=== PATIENT | female | born 1965 | race Caucasian/White ===

== ENCOUNTER → 2017-12-09 | Outpatient (CLI) | payer BC, OTHER ==
--- NOTE | 2017-12-13 11:26 | MM ---
Reason for exam: screening (asymptomatic). Last mammogram was performed 5 years and 8 months ago. History: Patient is postmenopausal and had first child at age 34. Retro-pectoral saline implants in both breasts, 2005. Reductions of both breasts. Physical Findings: A clinical breast exam by your physician is recommended on an annual basis and results should be correlated with mammographic findings. MG 3D Screen Mammo Imp/Cad Bilateral CC, MLO, and ID view(s) were taken. Prior study comparison: April 08, 2012, CAD bilateral diagnostic mammogram. June 07, 2009, bilateral diagnostic digital mammog. The breast tissue is heterogeneously dense. This may lower the sensitivity of mammography. There is no discrete abnormality. Subpectoral implants bilaterally. ASSESSMENT: Benign, BI-RAD 2 RECOMMENDATION: Routine screening mammogram of both breasts in 1 year.
== END | disposition home or self-care (01) ==
LOC: RADMAMWWP 10:45
PROVIDERS: ATTEND Family Medicine
DX: Z12.31 Encounter for screening mammogram for malignant neoplasm of breast (principal)
CPT/HCPCS: 77063; 77067

== ENCOUNTER 2017-12-13 10:41 | Day surgery (SDC) | payer BC, OTHER ==
[2017-12-08 16:09] VITALS: BMI 33.3
[~2017-12-13 10:41] MED LIST: LACTATED RINGERS 1,000 ML IV SCH; LIDOCAINE 1% 20 ML VIAL (10MG/ML) FOR IV START INTRADERMA PRN
[2017-12-13 11:14] VITALS: RESP 16; TEMP 98
[2017-12-13] MEDS ORDERED: PROPOFOL 10 MG/ML 20 ML VIAL IV ONE (11:27)
--- NOTE | 2017-12-13 11:30 | P.GSHP ---
History of Present Illness H&P Date: 12/13/17 Chief Complaint: Constipation, diarrhea Asst. 52-year-old female who's had complaints of issues with chronic constipation and some alternating diarrhea. Patient presents today for colonoscopy. Past Medical History Past Medical History: Fibromyalgia, Osteoarthritis (OA) Additional Past Medical History / Comment(s): environmental allergies, arthritis ghazal hands History of Any Multi-Drug Resistant Organisms: None Reported Past Surgical History: Bariatric Surgery, Breast Surgery, Cholecystectomy, Hysterectomy, Orthopedic Surgery Additional Past Surgical History / Comment(s): breast augmentation, lt ankle surgery,danielle-en-y Past Anesthesia/Blood Transfusion Reactions: No Reported Reaction Smoking Status: Former smoker - Past Family History Mother Family Medical History: Cancer Father Family Medical History: Cancer Medications and Allergies Home Medications Medication Instructions Recorded Confirmed Type Escitalopram [Lexapro] 30 mg PO DAILY 12/08/17 12/13/17 History Fluticasone Nasal [place] [Flonase 1 spray EA NOSTRIL BID 12/08/17 12/13/17 History Nasal [place]] Loratadine [Claritin] 20 mg PO BID 12/08/17 12/13/17 History Pregabalin [Lyrica] 100 mg PO DAILY 12/08/17 12/13/17 History lamoTRIgine [LaMICtal] 100 mg PO BID 12/08/17 12/13/17 History traZODone HCL 150 mg PO DAILY 12/08/17 12/13/17 History Allergies Allergy/AdvReac Type Severity Reaction Status Date / Time No Known Allergies Allergy Verified 12/13/17 11:12 Surgical - Exam Vital Signs Temp Pulse Resp BP Pulse Ox 98.0 F 67 16 142/63 96 12/13/17 11:12 12/13/17 11:12 12/13/17 11:12 12/13/17 11:12 12/13/17 11:12 - General well developed, no distress - Eyes PERRL - ENT normal pinna - Neck no masses - Respiratory normal expansion - Cardiovascular Rhythm: regular - Abdomen Abdomen: soft, non tender Assessment and Plan Assessment: Constipation, diarrhea. We'll perform colonoscopy
--- NOTE | 2017-12-13 11:46 | P.OP ---
Date of Procedure: 12/13/17 Preoperative Diagnosis: Constipation Diarrhea Postoperative Diagnosis: Mild diverticulosis Procedure(s) Performed: Colonoscopy Anesthesia: MAC Surgeon: Alejandro Cerna Pathology: none sent Condition: stable Disposition: PACU Description of Procedure: The patient's placed on the endoscopy table in the lateral position. She received IV sedation. Digital rectal exam was performed which revealed no other values. The flexible colonoscope was then placed patient anus passed throughout the entire colon. The ileocecal valve was visualized. The cecum, ascending and transverse colon appeared normal. In the descending and; sigmoid colon was mild diverticular changes. Scope was then brought back and this appeared normal. Scope was withdrawn for patient.
[2017-12-13 12:08] VITALS: BP 108/72; PULSE 52
== END 2017-12-13 12:38 | disposition home or self-care (01) ==
LOC: ORWHC2ENDO 10:41
PROVIDERS: ATTEND Surgery
DX: K57.30 Diverticulosis of large intestine without perforation or abscess without bleeding (principal); M79.7 Fibromyalgia; J30.89 Other allergic rhinitis; M19.042 Primary osteoarthritis, left hand; M19.041 Primary osteoarthritis, right hand; F39 Unspecified mood [affective] disorder; Z98.84 Bariatric surgery status; Z90.49 Acquired absence of other specified parts of digestive tract; Z90.710 Acquired absence of both cervix and uterus; Z87.891 Personal history of nicotine dependence; Z79.51 Long term (current) use of inhaled steroids; Z79.899 Other long term (current) drug therapy
CPT/HCPCS: 45378; J2704

== ENCOUNTER 2018-06-23 00:28 | Inpatient (IN) | payer BC, OTHER ==
[2018-06-23] MEDS ORDERED: MORPHINE SULFATE 4 MG/ML SYRINGE IVP STA (00:57)
[2018-06-23] MEDS ORDERED: KETOROLAC 30 MG/ML 1 ML VIAL IVP STA (00:57)
--- NOTE | 2018-06-23 00:59 | ED ---
General Adult HPI - General Chief complaint: Extremity Injury, Lower Stated complaint: Fall, R Ankle injury Time Seen by Provider: 06/23/18 00:50 Source: patient, RN notes reviewed, old records reviewed Mode of arrival: wheelchair Limitations: no limitations - History of Present Illness Initial comments: 53-year-old female presents with right ankle injury. Patient was trying on shoes, tripped and fell rolling her right ankle. She has deformity noted on initial exam. States she can feel her foot. She does have significant pain. She has complains of some mild right hip pain. No head neck or back injury. No anticoagulation. No chronic medical problems. - Related Data Home Medications Medication Instructions Recorded Confirmed Escitalopram [Lexapro] 30 mg PO DAILY 12/08/17 06/23/18 Fluticasone Nasal [place] [Flonase 1 spray EA NOSTRIL BID 12/08/17 06/23/18 Nasal [place]] Loratadine [Claritin] 20 mg PO BID 12/08/17 06/23/18 Pregabalin [Lyrica] 100 mg PO DAILY 12/08/17 06/23/18 lamoTRIgine [LaMICtal] 100 mg PO BID 12/08/17 06/23/18 traZODone HCL 150 mg PO DAILY 12/08/17 06/23/18 Allergies Allergy/AdvReac Type Severity Reaction Status Date / Time No Known Allergies Allergy Verified 12/13/17 11:12 Review of Systems ROS Statement: Those systems with pertinent positive or pertinent negative responses have been documented in the HPI. ROS Other: All systems not noted in ROS Statement are negative. Past Medical History Past Medical History: Fibromyalgia, Osteoarthritis (OA) Additional Past Medical History / Comment(s): environmental allergies, arthritis ghazal hands History of Any Multi-Drug Resistant Organisms: None Reported Past Surgical History: Bariatric Surgery, Breast Surgery, Cholecystectomy, Hysterectomy, Orthopedic Surgery Additional Past Surgical History / Comment(s): breast augmentation, lt ankle surgery,danielle-en-y Past Anesthesia/Blood Transfusion Reactions: No Reported Reaction Past Psychological History: Anxiety, Depression Smoking Status: Former smoker - Past Family History Mother Family Medical History: Cancer Father Family Medical History: Cancer General Exam Limitations: no limitations General appearance: alert, in no apparent distress Head exam: Present: atraumatic, normocephalic Eye exam: Present: normal appearance, PERRL ENT exam: Present: normal exam Neck exam: Present: normal inspection. Absent: tenderness, meningismus Respiratory exam: Present: normal lung sounds bilaterally. Absent: respiratory distress, wheezes Cardiovascular Exam: Present: regular rate, normal rhythm GI/Abdominal exam: Present: soft. Absent: distended, tenderness, guarding Extremities exam: Present: tenderness, pedal edema, other (Deformity right ankle with cap refill 3 seconds, palpable DP pulse) Neurological exam: Present: alert, oriented X3 Psychiatric exam: Present: normal affect, normal mood Skin exam: Present: warm, dry, intact. Absent: cyanosis, diaphoretic Course Vital Signs 06/23/18 06/23/18 06/23/18 00:43 01:44 01:48 Temperature 98.2 F Pulse Rate 71 73 75 Respiratory 22 20 20 Rate Blood Pressure 121/75 116/61 O2 Sat by Pulse 100 100 96 Oximetry 06/23/18 06/23/18 01:55 02:00 Temperature Pulse Rate 65 71 Respiratory 18 18 Rate Blood Pressure 120/75 114/69 O2 Sat by Pulse 100 98 Oximetry Procedures - Orthopedic Fracture Reduction Fracture #1 Consent Obtained: written consent Side: right Fracture Reduction Location: tibia, fibula Analgesia: procedural sedation Technique: direct manipulation Post Reduction X-rays Demonstrate: anatomical reduction Post-Reduction Neuro Exam: intact Post-Reduction Vascular Exam: intact Splint Applied: Yes Patient Tolerated Procedure: well - Orthopedic Splinting/Casting Injury #1 Side: right Lower Extremity Injury Location: ankle Lower Extremity Immobilizer: posterior splint, stirrup splint Other Orthopedic Equipment: crutches - Procedural Sedation Procedural Sedation Start Time: 01:44 Procedural Sedation Stop Time: 02:25 Indications: fracture/dislocation reduction ASA Class: I Mallampati Airway Score: 2 Preparation: cardiac specialist applied, pulse oximeter, capnometry used, supplemental O2 applied, suction/airway equipment at bedside IV Propofol Dose (mgs): 60 Complications: none Patient Tolerated Procedure: well Medical Decision Making - Medical Decision Making 53-year-old female with fracture dislocation of the right ankle. Patient does have reduction in the emergency department. Post reduction x-rays revealed near-normal anatomical positioning. She has maintained past. Normal neurovascular exam. Splint applied. Case discussed with Christina zhu for orthopedics. Patient will be admitted for operative repair. Internal medicine on consult for medical management. - Lab Data Result diagrams: 06/23/18 01:07 06/23/18 01:07 Lab Results 06/23/18 06/23/18 06/23/18 Range/Units 01:07 01:07 01:07 WBC 6.8 (3.8-10.6) k/uL RBC 4.25 (3.80-5.40) m/uL Hgb 11.9 (11.4-16.0) gm/dL Hct 36.7 (34.0-46.0) % MCV 86.3 (80.0-100.0) fL MCH 28.1 (25.0-35.0) pg MCHC 32.6 (31.0-37.0) g/dL RDW 14.6 (11.5-15.5) % Plt Count 269 (150-450) k/uL Neutrophils % 46 % Lymphocytes % 43 % Monocytes % 5 % Eosinophils % 3 % Basophils % 1 % Neutrophils # 3.1 (1.3-7.7) k/uL Lymphocytes # 2.9 (1.0-4.8) k/uL Monocytes # 0.3 (0-1.0) k/uL Eosinophils # 0.2 (0-0.7) k/uL Basophils # 0.0 (0-0.2) k/uL PT 10.8 (9.0-12.0) sec INR 1.0 (<1.2) APTT 23.4 (22.0-30.0) sec Sodium 139 (137-145) mmol/L Potassium 3.9 (3.5-5.1) mmol/L Chloride 107 (98-107) mmol/L Carbon Dioxide 24 (22-30) mmol/L Anion Gap 8 mmol/L BUN 8 (7-17) mg/dL Creatinine 0.70 (0.52-1.04) mg/dL Est GFR (CKD-EPI)AfAm >90 (>60 ml/min/1.73 sqM) Est GFR (CKD-EPI)NonAf >90 (>60 ml/min/1.73 sqM) Glucose 94 (74-99) mg/dL Calcium 9.3 (8.4-10.2) mg/dL Total Bilirubin 0.2 (0.2-1.3) mg/dL AST 28 (14-36) U/L ALT 25 (9-52) U/L Alkaline Phosphatase 67 (38-126) U/L Total Protein 6.4 (6.3-8.2) g/dL Albumin 3.9 (3.5-5.0) g/dL Disposition Clinical Impression: Ankle fracture, Trimalleolar fracture of ankle, closed Disposition: ADMITTED IP TO THIS [facility] Condition: Stable Is patient prescribed a controlled substance at d/c from ED?: No Referrals: Saskia Contreras MD [Primary Care Provider] - 1-2 days Decision to Admit Reason: Admit from EC Decision Date: 06/23/18 Decision Time: 03:24
[2018-06-23 01:16] LABS: Basophils % (A) 1 %; Eosinophils # (A) 0.2 k/uL (0-0.7); Eosinophils % (A) 3 %; HCT 36.7 % (34.0-46.0); HGB 11.9 gm/dL (11.4-16.0); Lymphocytes # (A) 2.9 k/uL (1.0-4.8); Lymphocytes % (A) 43 %; MCH 28.1 pg (25.0-35.0); MCHC 32.6 g/dL (31.0-37.0); MCV 86.3 fL (80.0-100.0); Mean Platelet Volume 7.6; Monocytes # (A) 0.3 k/uL (0-1.0); Monocytes % (A) 5 %; Neutrophils # (A) 3.1 k/uL (1.3-7.7); Neutrophils % (A) 46 %; Platelet Count 269 k/uL (150-450); RBC 4.25 m/uL (3.80-5.40); RDW 14.6 % (11.5-15.5); WBC 6.8 k/uL (3.8-10.6)
[2018-06-23 01:25] LABS: Partial Thromboplastin Time 23.4 sec (22.0-30.0); Prothrombin Time 10.8 sec (9.0-12.0)
[2018-06-23 01:30] LABS: ALT 25 U/L (9-52); AST 28 U/L (14-36); Albumin 3.9 g/dL (3.5-5.0); Alkaline Phosphatase 67 U/L (38-126); Anion Gap 8 mmol/L; Blood Urea Nitrogen 8 mg/dL (7-17); Calcium 9.3 mg/dL (8.4-10.2); Carbon Dioxide 24 mmol/L (22-30); Chloride 107 mmol/L (98-107); Glucose 94 mg/dL (74-99); Potassium 3.9 mmol/L (3.5-5.1); Sodium 139 mmol/L (137-145); Total Bilirubin 0.2 mg/dL (0.2-1.3); Total Protein 6.4 g/dL (6.3-8.2)
[2018-06-23] MEDS ORDERED: PROPOFOL 10 MG/ML 20 ML VIAL IV ONE (01:30)
--- NOTE | 2018-06-23 01:57 | XR ---
EXAM: XR Pelvis, 1 or 2 Views CLINICAL HISTORY: ITS.REASON XR Reason: Pain TECHNIQUE: Frontal view of the pelvis. COMPARISON: No relevant prior studies available. FINDINGS: Bones/joints: Unremarkable. No acute fracture. No dislocation. Soft tissues: No acute findings. IMPRESSION: No acute findings.
--- NOTE | 2018-06-23 02:00 | XR ---
EXAM: XR Right Ankle Complete, 3 or More Views CLINICAL HISTORY: ITS.REASON XR Reason: Pain TECHNIQUE: Frontal, lateral and oblique views of the right ankle. COMPARISON: No relevant prior studies available. FINDINGS: Severely displaced fracture at the distal metaphysis of the fibula. The distal fibula maintains its anatomic relationship with the talus. Severely displaced comminuted fracture at the distal tibia, involving the medial malleolus and the lateral corner. The fracture is intra-articular. The lateral corner of the distal tibia maintains a normal relationship with the talus. The remainder of the bone is severely malaligned. There is a widened medial clear space. There is no significant soft tissue swelling. IMPRESSION: Severe age-indeterminate fractures as described
--- NOTE | 2018-06-23 02:13 | XR ---
EXAM: XR Right Ankle Complete, 3 or More Views CLINICAL HISTORY: ITS.REASON XR Reason: Pain TECHNIQUE: Frontal, lateral and oblique views of the right ankle. COMPARISON: No relevant prior studies available. FINDINGS: Bones/joints: Displaced fracture at the posterior malleolus of the distal tibia. Displaced fracture appears to be present at the medial malleolus as well. Possible intra-articular fracture at the lateral corner of the distal tibia. Cannot exclude nondisplaced fracture of the distal fibula, on the lateral view. No dislocation. Soft tissues: Unremarkable. IMPRESSION: See above
[2018-06-23] MEDS ORDERED: NALOXONE 0.4 MG/ML 1 ML VIAL IV PRN (03:19)
[2018-06-23] MEDS ORDERED: IBUPROFEN 400 MG TAB PO PRN (03:19)
[2018-06-23] MEDS ORDERED: ACETAMINOPHEN TAB 325 MG TAB PO PRN (03:19)
[2018-06-23] MEDS ORDERED: HYDROmorphone 0.5 MG/0.5 ML SYRINGE IVP PRN ×2 (03:19→15:52)
[2018-06-23] MEDS ORDERED: ONDANSETRON 4 MG/2 ML VIAL IVP PRN (03:19)
[2018-06-23] MEDS ORDERED: HYDROcodone/APAP 5-325MG 1 EACH TAB PO PRN (08:00)
--- NOTE | 2018-06-23 08:00 | P.HPOR ---
History of Present Illness H&P Date: 06/23/18 Chief Complaint: Right ankle fracture Patient is a 53-year-old female who was brought to [facility] late last night after sustaining an injury to her right ankle. Patient was apparently at home trying on shoes when her dog tripped her she fell to the floor. The right ankle was twisted during the fall. Patient noted immediate pain and deformity of the right ankle. She denies hitting her head during the process. Upon arrival to [facility], imaging and lab tests were done. Images demonstrated a trimalleolar right ankle fracture with dislocation. The emergency room staff provided sedation and was able to reduce and splint fracture to near anatomical alignment. Distal neurovascular exam was intact after procedure. I was contacted by the emergency room staff regarding the patient, I was able to review the images. Patient was admitted under our orthopedic care for planned surgical intervention, internal medicine was placed on consult for medical management and clearance for surgery. Patient was evaluated today at bedside, she is resting comfortably. She notes minimal discomfort in the right ankle, increasing pain when she attempts movement. She's been nonweightbearing since the injury. She has no other orthopedic complaints at this time. She denies any previous orthopedic surgery involving the right lower extremity. She is relatively healthy female with no known pulmonology or cardiac history. Currently patient denies any headaches, lightheadedness, chest pain, shortness of breath, abdominal discomfort, fever or chills. Review of Systems Constitutional: Reports as per HPI Past Medical History Past Medical History: Fibromyalgia, Osteoarthritis (OA) Additional Past Medical History / Comment(s): environmental allergies, arthritis ghazal hands History of Any Multi-Drug Resistant Organisms: None Reported Past Surgical History: Bariatric Surgery, Breast Surgery, Cholecystectomy, Hysterectomy, Orthopedic Surgery Additional Past Surgical History / Comment(s): breast augmentation, left ankle surgery,danielle-en-y Past Anesthesia/Blood Transfusion Reactions: No Reported Reaction Past Psychological History: Anxiety, Depression Smoking Status: Former smoker Past Alcohol Use History: Occasional Additional Past Alcohol Use History / Comment(s): smoker for 10 years 1/2-1 ppd quit age 32 Past Drug Use History: None Reported - Past Family History Mother Family Medical History: Cancer Additional Family Medical History / Comment(s): lung cancer Father Family Medical History: Cancer Additional Family Medical History / Comment(s): lung cancer Medications and Allergies Home Medications Medication Instructions Recorded Confirmed Type Escitalopram [Lexapro] 30 mg PO DAILY 12/08/17 06/23/18 History Fluticasone Nasal [place] [Flonase 1 spray EA NOSTRIL BID 12/08/17 06/23/18 History Nasal [place]] Loratadine [Claritin] 20 mg PO BID 12/08/17 06/23/18 History Pregabalin [Lyrica] 100 mg PO DAILY 12/08/17 06/23/18 History lamoTRIgine [LaMICtal] 100 mg PO BID 12/08/17 06/23/18 History traZODone HCL 150 mg PO DAILY 12/08/17 06/23/18 History Allergies Allergy/AdvReac Type Severity Reaction Status Date / Time No Known Allergies Allergy Verified 12/13/17 11:12 Physical Examination Right lower extremity: Posterior splint with Miguel wrap is in good position and condition. She is able to wiggle the toes no difficulty. Skin is warm to touch both proximal and distal to the splint. Her sensation light touch both proximal distal to the splint are intact. Logroll maneuver of the right leg reproduces no groin pain. There is no significant effusion present over the knee, no lesions or sores. She is nontender with palpation surrounding the knee. Results - Labs Labs: H & H 06/23/18 Range/Units 01:07 Hgb 11.9 (11.4-16.0) gm/dL Hct 36.7 (34.0-46.0) % Coagulation 06/23/18 Range/Units 01:07 INR 1.0 (<1.2) Result Diagrams: 06/23/18 01:07 06/23/18 01:07 - Diagnostic results Ankle/Foot x-ray: report reviewed, image reviewed Assessment and Plan Plan: Imaging: Multiple views of the right ankle were obtained, both post and prereduction x- rays. Pre reduction x-rays demonstrated a ankle dislocation with trimalleolar ankle fracture. Postreduction films demonstrated adequate alignment of the ankle joint with multiple fractures. Assessment: 1. Trimalleolar right ankle fracture 2. Status post relocation right ankle dislocation 3. Fall from standing Plan: I was able to discuss the case, including both physical exam findings and imaging studies my tending Dr. Karadimas. We would like to proceed with surgical intervention, more specifically open reduction internal fixation of the right ankle. Risks and benefits of the procedure were discussed with the patient, this to include but not exclusive to infection, blood loss, neurovascular injury, pain and stiffness, development blood clots, and adequate healing of bone, possible need for further surgery. Patient is in good understanding and would fer to proceed. Obtain consent Nonweightbearing right lower extremity Pain control Medical recommendations and clearance Plan for surgery on 06/24/2018, anticipate discharge on 06/25/2018 depending adequate pain control and no surgical complications Further recommendations to follow Time with Patient: Less than 30
--- NOTE | 2018-06-23 17:17 | P.CONS ---
History of Present Illness - Reason for Consult Consult date: 06/23/18 - History of Present Illness Patient is a 53-year-old female with a PMH of fibromyalgia and depression who presented to the ED after an ankle injury. The patient notes that she was in her usual state of health and was tying her shoes when she tripped and fell on her right ankle yesterday with immediate significant pain. She denied any head injury. The patient subsequently come to the ED where she was noted to have a t rimalleolar right ankle fracture with dislocation. The patient underwent reduction and splint placement while in the ED. The patient was seen at the bedside and reported that her pain of the right ankle is significantly improved since admission, currently at a 3 out of 10. She otherwise denied any active complaints including fever, chills, cough. She further abdominal pain, nausea, or vomiting. She reports that her excess tolerance is unlimited and denied any previous cardiac conditions. She has a previous history of smoking and quit more than 20 years ago. Review of Systems Pertinent positives and negatives as discussed in HPI, a complete review of systems was performed and all other systems are negative. Past Medical History Past Medical History: Fibromyalgia, Osteoarthritis (OA) Additional Past Medical History / Comment(s): environmental allergies, arthritis ghazal hands History of Any Multi-Drug Resistant Organisms: None Reported Past Surgical History: Bariatric Surgery, Breast Surgery, Cholecystectomy, Hysterectomy, Orthopedic Surgery Additional Past Surgical History / Comment(s): breast augmentation, left ankle surgery,danielle-en-y Past Anesthesia/Blood Transfusion Reactions: No Reported Reaction Past Psychological History: Anxiety, Depression Smoking Status: Former smoker Past Alcohol Use History: Occasional Additional Past Alcohol Use History / Comment(s): smoker for 10 years 1/2-1 ppd quit age 32 Past Drug Use History: None Reported - Past Family History Mother Family Medical History: Cancer Additional Family Medical History / Comment(s): lung cancer Father Family Medical History: Cancer Additional Family Medical History / Comment(s): lung cancer Medications and Allergies Home Medications Medication Instructions Recorded Confirmed Type Escitalopram [Lexapro] 10 mg PO DAILY 12/08/17 06/23/18 History Fluticasone Nasal [place] [Flonase 1 spray EA NOSTRIL BID 12/08/17 06/23/18 History Nasal [place]] Loratadine [Claritin] 10 mg PO DAILY 12/08/17 06/23/18 History Pregabalin [Lyrica] 100 mg PO HS 12/08/17 06/23/18 History lamoTRIgine [LaMICtal] 100 mg PO QAM 12/08/17 06/23/18 History traZODone HCL 150 mg PO HS 12/08/17 06/23/18 History Escitalopram [Lexapro] 20 mg PO DAILY 06/23/18 06/23/18 History lamoTRIgine [LaMICtal] 200 mg PO HS 06/23/18 06/23/18 History Allergies Allergy/AdvReac Type Severity Reaction Status Date / Time No Known Allergies Allergy Verified 06/23/18 08:07 Physical Exam Vitals: Vital Signs Temp Pulse Pulse Resp BP BP Pulse Ox 06/23/18 15:00 98.9 F 68 16 120/68 95 06/23/18 07:00 97.8 F 64 16 110/70 97 06/23/18 05:31 97.9 F 62 18 111/73 98 06/23/18 04:44 98.1 F 71 18 98/52 97 06/23/18 03:00 97.6 F 68 20 102/86 97 06/23/18 02:00 71 18 114/69 98 06/23/18 01:55 65 18 120/75 100 06/23/18 01:48 75 20 116/61 96 06/23/18 01:44 73 20 121/75 100 06/23/18 00:43 98.2 F 71 22 100 Intake and Output 06/23/18 06/23/18 06/23/18 06:59 14:59 22:59 Other: # Voids 3 Weight 95.254 kg General: non toxic, no distress, appears at stated age, obese Derm: no unusual rashes/lesions no unusual ecchymoses, warm, dry Head: atraumatic, normocephalic, symmetric Eyes: EOMI, no lid lag, anicteric sclera, pupils equal round reactive to light ENT: Nose and ears atraumatic, no thrush, no pharyngeal erythema Neck: No thyromegaly, no cervical lymphadenopathy, trachea midline, supple Mouth: no lip lesion, mucus membranes moist Cardiovascular: S1S2 reg, no murmur, positive posterior tibial pulse bilateral, no edema, capillary refill less than 2 seconds Lungs: CTA bilateral, no rhonchi, no rales , no accessory muscle use Abdominal: soft, nontender to palpation, no guarding, no appreciable orga nomegaly, normal bowel sounds Ext: no gross muscle atrophy, right lower extremity Miguel bandage in place with right ankle splint Neuro: CN II-XI grossly intact, light touch intact all 4 extremities, finger to nose within normal limits, Psych: Alert, oriented, appropriate affect Results CBC & Chem 7: 06/23/18 01:07 06/23/18 01:07 Assessment and Plan Plan: Trimalleolar right ankle fracture with dislocation -Orthopedic surgery service on board -Patient is low risk for perioperative cardiac complications and is optimized for the orthopedic procedure
[2018-06-23] MEDS: FLUTICASONE 50MCG/SPRAY NASAL 16GM EA NOSTRIL SCH (20:09)
[2018-06-23] MEDS: PREGABALIN 100 MG CAP PO SCH (20:09)
[2018-06-23] MEDS: traZODone HCL 100 MG TAB PO SCH (20:09)
[2018-06-23] MEDS: lamoTRIgine 100 MG TAB PO SCH (20:09)
[2018-06-24] MEDS: LACTATED RINGERS 1,000 ML IV SCH ×2 (00:21→23:10)
[2018-06-24] MEDS: HYDROcodone/APAP 5-325MG 1 EACH TAB PO PRN ×3 (00:28→20:33)
[2018-06-24] MEDS: traMADol 50 MG TAB PO PRN (03:21)
[2018-06-24] MEDS: lamoTRIgine 100 MG TAB PO SCH ×2 (07:49→20:34)
[2018-06-24] MEDS: ESCITALOPRAM 20 MG TAB PO SCH (07:49)
[2018-06-24] MEDS: ESCITALOPRAM 10 MG TAB PO SCH (07:52)
[2018-06-24] MEDS: FLUTICASONE 50MCG/SPRAY NASAL 16GM EA NOSTRIL SCH ×2 (08:43→20:28)
[2018-06-24] MEDS: LORATADINE 10 MG TAB PO SCH (08:43)
[2018-06-24] MEDS ORDERED: HYDROmorphone 1 MG/ML 1 ML SYRINGE IVP PRN (10:21)
--- NOTE | 2018-06-24 10:21 | P.PN ---
Subjective Progress Note Date: 06/24/18 Patient was seen and examined at the bedside. She notes continued 8 out of 10 right ankle pain but otherwise free of active complaints. She denied fever, chills, chest pain, shortness breath, nausea, or vomiting. She also denied abdominal pain or diarrhea. Objective - Vital Signs Vital signs: Vital Signs Temp 98.3 F 06/24/18 01:25 Pulse 67 06/24/18 01:25 Resp 18 06/24/18 03:31 BP 103/67 06/24/18 01:25 Pulse Ox 91 L 06/24/18 01:25 Intake & Output 06/23/18 06/24/18 06/24/18 18:59 06:59 18:59 Output Total 800 Balance -800 Output: Urine 800 Other: Voiding Method Bedside Commode # Voids 3 - Exam General: Non-toxic, in no acute distress, appears stated age, obese HEENT: NC/AT, anicteric sclerae, moist conjunctiva, no lid-lag, PERRLA Cardiovascular: S1/S2 wnl, no murmurs, rubs, or gallops Lungs: Clear to auscultation, normal respiratory effort, no accessory muscle use Abdominal: Soft, non-tender, non-distended, no guarding, rebound, or rigidity Skin: Warm, dry Extremities: Right lower extremity Miguel bandage with right ankle splint Psychiatric: Alert and oriented to person, place and time, appropriate affect Neuro: CN II-XII grossly intact, Strength 5/5 in all extremities except right lower extremity , Speech intact, Sensation to light touch grossly intact throughout - Labs CBC & Chem 7: 06/23/18 01:07 06/23/18 01:07 Assessment and Plan Plan: Trimalleolar right ankle fracture with dislocation -Patient scheduled for surgical repair later today as per orthopedic surgery -Patient continues to be optimized for her procedure Acute right ankle pain -Continue with Dilaudid, [place], and tramadol
[2018-06-24] MEDS ORDERED: IV FLUID CONTINUATION 600 ML IV ONE (13:29)
[2018-06-24] MEDS ORDERED: DEXAMETHASONE SOD PHOS (MDV) 100 MG/10 ML VIAL IV ONE (13:49)
[2018-06-24] MEDS ORDERED: ONDANSETRON 4 MG/2 ML VIAL IVP ONE (13:49)
[2018-06-24] MEDS ORDERED: PROPOFOL 10 MG/ML 20 ML VIAL IV ONE (14:42)
[2018-06-24] MEDS ORDERED: MIDAZOLAM 2 MG/2 ML VIAL ONE (14:42)
[2018-06-24] MEDS ORDERED: fentaNYL (PF) 50 MCG/ML 2 ML AMP ONE (14:42)
[2018-06-24] MEDS ORDERED: ceFAZolin 1,000 MG in SODIUM CHLORIDE 0.9% 1,000 ML IRRIGATION ONE (15:12)
[2018-06-24] MEDS ORDERED: LACTATED RINGERS 1,000 ML IV ONE (15:50)
--- NOTE | 2018-06-24 16:13 | P.OP ---
Date of Procedure: 06/24/18 Preoperative Diagnosis: Right ankle trimalleolar fracture Postoperative Diagnosis: Right ankle trimalleolar fracture Procedure(s) Performed: Open reduction and internal fixation right ankle trimalleolar fracture Implants: Synthes one third semitubular 6-hole plate and 8 appropriate length Synthes screws Anesthesia: spinal Surgeon: Umberto Major Molding Line Assistant #1: Bernardo Ramirez Estimated Blood Loss (ml): 15 Pathology: none sent Condition: stable Disposition: PACU Indications for Procedure: 53-year-old patient seen with displaced right ankle trimalleolar fracture. I recommended open reduction internal fixation. Patient was agreeable. Consent was obtained. Operative Findings: See description of procedure Description of Procedure: Patient was taken to the operative suite. Patient received preoperative IV antibiotics. Patient underwent a spinal anesthetic by the department of anesthesia. A well-padded tourniquet placed proximal right lower extremity. The right lower extremity was prepped and draped in the normal sterile orthopedic fashion. The extremity was elevated and tourniquet insufflated to 300. An incision was made along the lateral malleolus sharply through skin. We dissected down to the lateral malleolar fracture. Hematoma was evacuated. Periosteal elevation was utilized to define the fracture. The fracture was reduced utilizing bone reduction clamp. I chose a one third semitubular plate and appropriate contour. This was secured appropriately screws were inserted all having good bite and purchase. The construct was reviewed and revealed adequate reduction of the fracture and good position of the internal fixation. I now made incision along the medial malleolus sharply through skin. Dissection taken down the fracture site. The distal medial malleolar fracture fragment was fairly small. The hematoma was evacuated. The fracture was reduced utilizing bone reduction clamp. I introduced 2-35 mm partially-threaded 4.0 mm screws to stabilize the medial malleolar fracture. We had good bite and good fixation. We now brought the C-arm into the operative field revealing the AP and oblique mortise and noting good positioning of the hardware and fixation. The mortise was congruent. Lateral intraoperative image revealed that posterior malleolar fracture representing approximately 20-25% but it appeared stable along with a good stable mortise. Spot films were obtained to document this. The C-arm was pulled out. The wounds were irrigated with saline solution. The subcutaneous soft tissues of both incisions were approximated 2-0 Vicryl. The skin margins of both incisions were approximated with skin otto. Sterile dressings were applied. Web roll was applied. The tourniquet was released with immediate cap illary refill noted. We now placed the ankle in to a modified bulky Ye splint in neutral position. Inocente RENEE assisted with this procedure. The patient was transferred to a bed and the recovery stable condition.
[2018-06-24] MEDS: PREGABALIN 100 MG CAP PO SCH (20:34)
[2018-06-24] MEDS: MORPHINE SULFATE 4 MG/ML SYRINGE IVP PRN (22:06)
[2018-06-24] MEDS: traZODone HCL 100 MG TAB PO SCH (23:19)
[2018-06-25] MEDS: traMADol 50 MG TAB PO PRN (00:21)
[2018-06-25] MEDS: MORPHINE SULFATE 4 MG/ML SYRINGE IVP PRN ×3 (02:05→16:45)
[2018-06-25] MEDS: HYDROcodone/APAP 5-325MG 1 EACH TAB PO PRN (03:35)
[2018-06-25] MEDS: LORATADINE 10 MG TAB PO SCH (09:25)
[2018-06-25] MEDS: FLUTICASONE 50MCG/SPRAY NASAL 16GM EA NOSTRIL SCH ×2 (09:25→20:47)
[2018-06-25] MEDS: ESCITALOPRAM 10 MG TAB PO SCH (09:25)
[2018-06-25] MEDS: lamoTRIgine 100 MG TAB PO SCH ×2 (09:25→20:50)
[2018-06-25] MEDS: ESCITALOPRAM 20 MG TAB PO SCH (09:25)
--- NOTE | 2018-06-25 10:08 | FL ---
Fluoroscopy HISTORY: Trimalleolar fracture dislocation 24 seconds fluoroscopy time supplied to the referring clinician. 3 intraoperative C-arm images docum ent the procedure. See dictated report from orthopedic surgery.
--- NOTE | 2018-06-25 10:08 | XR ---
Limited right ankle HISTORY: Open reduction internal fixation 3 intraoperative C-arm images document the procedure
[2018-06-25] MEDS ORDERED: POLYETHYLENE GLYCOL 3350 17 GM POWD.PACK PO PRN (10:36)
--- NOTE | 2018-06-25 10:41 | P.PN ---
Subjective Progress Note Date: 06/25/18 Principal diagnosis: Right ankle fracture Patient is a 53-year-old female with a past medical history of fibromyalgia, depression, and obesity who presented to the emergency department after an ankle injury. She subsequently underwent ORIF of right ankle on 06/24. Patient seen and examined at bedside. She reports that she has been struggling with pain control this morning. The 2 tablets of [place] 5/325 are not controlling her pain. Morphine is working well. She had some postoperative nausea which resolved without significant intervention. She denies any chest pain or shortness of breath. She has not had a bowel movement since surgery. She's concerned that she needs to go to rehab as she lives alone. We discussed the benefits and drawbacks of rehab including increased risk for repeat hospitalization and secondary infection. I encouraged her to discuss this with the orthopedic service team as well as physical therapy. Objective - Vital Signs Vital signs: Vital Signs Temp 98.1 F 06/25/18 07:00 Pulse 66 06/25/18 07:00 Resp 16 06/25/18 07:00 BP 112/69 06/25/18 07:00 Pulse Ox 96 06/25/18 07:00 Intake & Output 06/24/18 06/25/18 06/25/18 18:59 06:59 18:59 Intake Total 701 160 Output Total 815 600 Balance -114 -440 Intake: IV 701 Intake, IV Titration 160 Amount Lactated Ringers 1,000 ml 160 @ 20 mls/hr IV .Q24H [facility] Rx#:[id number] Output: Urine 800 600 Estimated Blood Loss 15 Other: Voiding Method Bedside Commode Bedside Commode # Voids 3 1 - Exam General: non toxic, no distress, appears at stated age, obese Derm: warm, dry Head: atraumatic, normocephalic, symmetric Eyes: EOMI, no lid lag, anicteric sclera Mouth: no lip lesion, mucus membranes moist Cardiovascular: S1S2 reg, no murmur, positive posterior tibial pulse bilateral, Lungs: CTA bilateral, no rhonchi, no rales , no accessory muscle use Abdominal: soft, nontender to palpation, no guarding, no appreciable organomegaly Ext: Right leg with cast in place, no gross muscle atrophy, no edema, no contractures Neuro: CN II-XI grossly intact, no focal neuro deficits Psych: Alert, oriented, appropriate affect - Labs CBC & Chem 7: 06/23/18 01:07 06/23/18 01:07 Assessment and Plan Assessment: Trimalleolar right ankle fracture s/p ORIF 1.Constipation - prn miralax 2. Right ankle pain - will increase norco to 7.5 mg BID in order to help stop need for IV morphine. - Further pain management to the discretion of ortho 3. Fibromyalgia - Encourage continued movement and activity 4. Obesity with BMI 34.9 - Outpatient structured weight loss4 Medically stable for discharge when deemed appropriate by ortho. Thank you for allowing us to participate in the care of this patient. Do not hesitate to contact us with questions. Someone can be reached from the [facility] hospitalist group at all hours of the day at [phone].
[2018-06-25] MEDS: HYDROcodone/APAP 7.5-325MG 1 EACH TAB PO PRN ×2 (10:51→19:50)
--- NOTE | 2018-06-25 11:22 | P.PN ---
Subjective Progress Note Date: 06/25/18 Principal diagnosis: Status post ORIF right trimalleolar ankle fracture Patient is evaluated at bedside today, she is resting comfortably. I was contacted last night with regards to pain control. We did switch her IV pain medication around. She has struggled with the oral medication, she feels like it's not strong enough. She has not gotten out of bed yet at this time. Objective - Vital Signs Vital signs: Vital Signs Temp 98.1 F 06/25/18 07:00 Pulse 66 06/25/18 07:00 Resp 16 06/25/18 07:00 BP 112/69 06/25/18 07:00 Pulse Ox 96 06/25/18 07:00 Intake & Output 06/24/18 06/25/18 06/25/18 18:59 06:59 18:59 Intake Total 701 160 Output Total 815 600 Balance -114 -440 Intake: IV 701 Intake, IV Titration 160 Amount Lactated Ringers 1,000 ml 160 @ 20 mls/hr IV .Q24H [facility] Rx#:[id number] Output: Urine 800 600 Estimated Blood Loss 15 Other: Voiding Method Bedside Commode Bedside Commode # Voids 3 1 - Exam Right lower extremity: Postoperative splint is in good position and condition. Minimal soft tissue swelling present in the toes. She is able wiggle the toes and minimal difficulty. Sensory exam to light touch both proximal distal to this point are intact. Skin is warm to touch. - Labs CBC & Chem 7: 06/23/18 01:07 06/23/18 01:07 Assessment and Plan Plan: Assessment: 1. Postop day #1 status post ORIF right ankle trimalleolar fracture Plan: Pain control, internal medicine did increase oral pain medication, we'll try to hold off on IV pain medication GI and DVT prophylaxis, continue current medication Nonweightbearing right lower extremity, utilizing a knee scooter Ice and elevate often Medical recommendations Hopeful discharge to home tomorrow Time with Patient: Less than 30
[2018-06-25] MEDS: LACTATED RINGERS 1,000 ML IV SCH (20:48)
[2018-06-25] MEDS: traZODone HCL 100 MG TAB PO SCH (20:50)
[2018-06-25] MEDS: PREGABALIN 100 MG CAP PO SCH (20:50)
[2018-06-26] MEDS: HYDROcodone/APAP 7.5-325MG 1 EACH TAB PO PRN ×4 (02:21→22:27)
[2018-06-26] MEDS: traMADol 50 MG TAB PO PRN ×3 (05:54→20:10)
[2018-06-26] MEDS: ESCITALOPRAM 20 MG TAB PO SCH (08:32)
[2018-06-26] MEDS: lamoTRIgine 100 MG TAB PO SCH ×2 (08:33→20:57)
[2018-06-26] MEDS: ESCITALOPRAM 10 MG TAB PO SCH (08:33)
[2018-06-26] MEDS: FLUTICASONE 50MCG/SPRAY NASAL 16GM EA NOSTRIL SCH ×2 (08:33→20:58)
[2018-06-26] MEDS: LORATADINE 10 MG TAB PO SCH (08:33)
--- NOTE | 2018-06-26 09:24 | P.PN ---
Subjective Progress Note Date: 06/26/18 Principal diagnosis: Status post ORIF right trimalleolar ankle fracture Patient is evaluated at bedside today, she is resting comfortably. Pain control is better today with increasing her oral medication. She points over physical therapy today. She denies any chest pain, shortness of breath, fever or chills. Objective - Vital Signs Vital signs: Vital Signs Temp 98.0 F 06/26/18 07:00 Pulse 70 06/26/18 07:00 Resp 14 06/26/18 07:00 BP 145/88 06/26/18 07:00 Pulse Ox 95 06/26/18 07:00 Intake & Output 06/25/18 06/26/18 06/26/18 18:59 06:59 18:59 Intake Total 160 240 Output Total 1200 Balance -1040 240 Intake: Intake, IV Titration 160 Amount Lactated Ringers 1,000 ml 160 @ 20 mls/hr IV .Q24H [facility] Rx#:[id number] Oral 240 Output: Urine 1200 Other: Voiding Method Bedside Commode Bedside Commode Bedside Commode # Voids 1 2 - Exam Right lower extremity: Postoperative splint is in good position and condition. Minimal soft tissue swelling present in the toes. She is able wiggle the toes and minimal difficulty. Sensory exam to light touch both proximal distal to this point are intact. Skin is warm to touch. - Labs CBC & Chem 7: 06/23/18 01:07 06/23/18 01:07 Assessment and Plan Plan: Assessment: 1. Postop day #2 status post ORIF right ankle trimalleolar fracture Plan: Pain control, discharge on [place] 7.5 mg/325 mg GI and DVT prophylaxis, aspirin 325 mg once a day Physical therapy evaluation Nonweightbearing right lower extremity, utilizing a knee scooter Ice and elevate often Medical recommendations Hopeful discharge to home today Time with Patient: Less than 30
--- NOTE | 2018-06-26 09:43 | P.PN ---
Subjective Progress Note Date: 06/26/18 Principal diagnosis: Right ankle fracture Patient is a 53-year-old female with a past medical history of fibromyalgia, depression, and obesity who presented to the emergency department after an ankle injury. She subsequently underwent ORIF of right ankle on 06/24. Patient seen and examined at bedside. Pain better controlled, worried about being non tarik bearing, no chest pain, no sob, no nausea, no vomiting. Did not take miralax yesterday as worried about to aggressive of bowel movements. Is willing to take today. Objective - Vital Signs Vital signs: Vital Signs Temp 98.0 F 06/26/18 07:00 Pulse 70 06/26/18 07:00 Resp 14 06/26/18 07:00 BP 145/88 06/26/18 07:00 Pulse Ox 95 06/26/18 07:00 Intake & Output 06/25/18 06/26/18 06/26/18 18:59 06:59 18:59 Intake Total 160 240 Output Total 1200 Balance -1040 240 Intake: Intake, IV Titration 160 Amount Lactated Ringers 1,000 ml 160 @ 20 mls/hr IV .Q24H [facility] Rx#:[id number] Oral 240 Output: Urine 1200 Other: Voiding Method Bedside Commode Bedside Commode Bedside Commode # Voids 1 2 - Exam General: non toxic, no distress, appears at stated age, obese Derm: warm, dry Head: atraumatic, normocephalic, symmetric Eyes: EOMI, no lid lag, anicteric sclera Mouth: no lip lesion, mucus membranes moist Cardiovascular: S1S2 reg, no murmur, positive posterior tibial pulse bilateral, Lungs: CTA bilateral, no rhonchi, no rales , no accessory muscle use Abdominal: soft, nontender to palpation, no guarding, no appreciable organomegaly Ext: Right leg with cast in place, no gross muscle atrophy, no edema, no contractures Neuro: CN II-XI grossly intact, no focal neuro deficits Psych: Alert, oriented, appropriate affect - Labs CBC & Chem 7: 06/23/18 01:07 06/23/18 01:07 Assessment and Plan Assessment: Trimalleolar right ankle fracture s/p ORIF 1.Constipation - prn miralax- give dose today 2. Right ankle pain - norco to 7.5 mg BID working well - Further pain management to the discretion of ortho 3. Fibromyalgia - Encourage continued movement and activity 4. Obesity with BMI 34.9 - Outpatient structured weight loss4 Medically stable for discharge when deemed appropriate by ortho. Thank you for allowing us to participate in the care of this patient. Do not hesitate to contact us with questions. Someone can be reached from the [facility] hospitalist group at all hours of the day at [phone].
[2018-06-26] MEDS: traZODone HCL 100 MG TAB PO SCH (20:58)
[2018-06-26] MEDS: PREGABALIN 100 MG CAP PO SCH (20:58)
[2018-06-26] MEDS: LACTATED RINGERS 1,000 ML IV SCH (21:00)
[2018-06-27] MEDS: HYDROcodone/APAP 7.5-325MG 1 EACH TAB PO PRN ×2 (04:30→10:24)
[2018-06-27] MEDS: ESCITALOPRAM 10 MG TAB PO SCH (07:22)
[2018-06-27] MEDS: FLUTICASONE 50MCG/SPRAY NASAL 16GM EA NOSTRIL SCH (07:23)
[2018-06-27] MEDS: ESCITALOPRAM 20 MG TAB PO SCH (07:23)
[2018-06-27] MEDS: LORATADINE 10 MG TAB PO SCH (07:23)
[2018-06-27] MEDS: lamoTRIgine 100 MG TAB PO SCH (07:23)
[2018-06-27 07:56] VITALS: BP 121/79; PULSE 82; RESP 16; TEMP 97.8
--- NOTE | 2018-06-27 09:36 | P.PN ---
Subjective Progress Note Date: 06/27/18 Principal diagnosis: Status post ORIF right trimalleolar ankle fracture Patient is evaluated at bedside today, she is resting comfortably. Patient had an incident yesterday afternoon prior to discharge, she was attempting to get back in bed using the knee scooter and slipped down to the floor. She no increase in pain in the ankle. I did keep her 1 additional night. She feels a lot better this morning, she's been in a lot of bed a few different times with no problems. She denies any chest pain, shortness of breath, fever or chills. Objective - Vital Signs Vital signs: Vital Signs Temp 97.8 F 06/27/18 07:00 Pulse 82 06/27/18 07:00 Resp 16 06/27/18 07:00 BP 121/79 06/27/18 07:00 Pulse Ox 93 L 06/27/18 07:00 Intake & Output 06/26/18 06/27/18 06/27/18 18:59 06:59 18:59 Intake Total 660 200 Balance 660 200 Intake: Oral 660 200 Other: Voiding Method Bedside Commode Toilet Toilet # Voids 3 2 - Exam Right lower extremity: Postoperative splint is in good position and condition. Minimal soft tissue swelling present in the toes. She is able wiggle the toes and minimal difficulty. Sensory exam to light touch both proximal distal to this point are intact. Skin is warm to touch. - Labs CBC & Chem 7: 06/23/18 01:07 06/23/18 01:07 Assessment and Plan Plan: Assessment: 1. Postop day #3 status post ORIF right ankle trimalleolar fracture Plan: Pain control, discharge on [place] 7.5 mg/325 mg GI and DVT prophylaxis, aspirin 325 mg once a day Physical therapy evaluation Nonweightbearing right lower extremity, utilizing a knee scooter Ice and elevate often Medical recommendations Discharge home today Time with Patient: Less than 30
--- NOTE | 2018-06-27 09:37 | P.DS ---
Providers Date of admission: 06/23/18 03:19 Expected date of discharge: 06/27/18 Attending physician: Umberto Major Consults: 06/23/18 03:20 Consult Physician Routine Consulting Provider: Mayo Landaverde Consult Reason/Comments: Medical management Do you want consulting provider notified?: Yes Primary care physician: Saskia Contreras MD Hospital Course: Date of admission: 06/23/2018 Date of discharge: 06/27/2018 Admission diagnosis: Right trimalleolar ankle fracture, status post relocation right ankle dislocation Discharge diagnosis: Status post ORIF right ankle trimalleolar fracture Attending physician: Dr. Major Surgical procedures: Open reduction internal fixation right ankle trimalleolar fracture Brief history: Patient is a 53-year-old female who presented to [facility] on 06/23/2018 after sustaining a fall at home. Patient was apparently trying on shoes, when her dog bumped into her, she fell on her right side. She had immediate pain and deformity of the right ankle, she was unable to bear weight. Upon arrival to [facility], images demonstrated a dislocated right ankle with evidence of a right trimalleolar ankle fracture. Sedation was provided by the emergency room staff, they were able to relocate the ankle and place her in a splint. I was contacted by the emergency room staff regarding this patient, she was admitted under orthopedic care with plan for surgical intervention. She underwent a surgical procedure on 06/24/2018. Hospital course: Details of patient's surgery can be found in operative report. Patient tolerated the procedure well and was subsequently transported to orthopedic floor. Patient's orthopeidc and medical care was provided daily. Patient had daily laboratory tests performed for evaluation of overall blood counts. Patient had daily physical therapy to include strengthening range of motion as well as education with walker ambulation. Patient was treated with Lovenox for their postoperative DVT prophylaxis during their inpatient stay. Patient was noted to have a relatively uneventful postoperative course. Patient reported satisfactory pain control with oral pain medications by postoperative day 0. Patient showed satisfactory progress with physical therapy. Patient moved steadily through the program and had no difficulty meeting the goals by postoperative day 3. Given patient's otherwise satisfactory course and having met physical therapy goals, plan is to discharge patient home on postoperative day 3. Discharge condition/disposition: Patient will be discharged home in stable condition. Discharge medications: Instructions are given on resumption of patient's normal daily medications per primary care recommendation, in addition patient will be p rescribed [place] 7.5 mg/325 mg, tramadol 50 mg, Colace milligrams, aspirin 325 mg. Discharge instructions: 1. Wound care and infection precautions, keep incision dry and covered while showering, no lotions, creams, moisturizers. No soaking, tubs, pools, hottubs. Do not scrub over the incision. 2. Nonweightbearing right lower extremity, utilize scooter/walker/crutches as needed 3. Ice and elevate when necessary. Do not exceed 20 minutes per hour with ice pack. 4. Utilize compression sleeve until seen at first follow up appointment. 7. Pain meds and anticoagulants per prescription. 8. Pain medication has potential to cause constipation. Increase oral fluid and fiber intake. Contact primary care provider if you have not had a bowel movement within 48 hours after discharge 10. Follow up in office at 2 weeks postop with Inocente Ramirez PA-C 11. Follow up with your primary care doctor 7-10 days after discharge. 12. Contact [facility] with any questions, . Procedures: Open reduction internal fixation right trimalleolar fracture Patient Condition at Discharge: Good Plan - Discharge Summary Discharge Rx Participant: Yes New Discharge Prescriptions: New Aspirin 325 mg PO DAILY #30 tab Docusate [Colace] 100 mg PO DAILY #30 capsule HYDROcodone/APAP 7.5-325MG [[place] 7.5] 1 - 2 each PO Q6HR PRN #56 tab PRN Reason: Pain traMADol HCl [Ultram] 50 mg PO Q6H PRN #28 tab PRN Reason: Pain No Action Fluticasone Nasal [place] [Flonase Nasal [place]] 1 spray EA NOSTRIL BID traZODone HCL 150 mg PO HS Pregabalin [Lyrica] 100 mg PO HS Escitalopram [Lexapro] 10 mg PO DAILY lamoTRIgine [LaMICtal] 100 mg PO QAM Loratadine [Claritin] 10 mg PO DAILY Escitalopram [Lexapro] 20 mg PO DAILY lamoTRIgine [LaMICtal] 200 mg PO HS Discharge Medication List Escitalopram [Lexapro] 10 mg PO DAILY 12/08/17 [History] Fluticasone Nasal [place] [Flonase Nasal [place]] 1 spray EA NOSTRIL BID 12/08/17 [History] Loratadine [Claritin] 10 mg PO DAILY 12/08/17 [History] Pregabalin [Lyrica] 100 mg PO HS 12/08/17 [History] lamoTRIgine [LaMICtal] 100 mg PO QAM 12/08/17 [History] traZODone HCL 150 mg PO HS 12/08/17 [History] Escitalopram [Lexapro] 20 mg PO DAILY 06/23/18 [History] lamoTRIgine [LaMICtal] 200 mg PO HS 06/23/18 [History] Aspirin 325 mg PO DAILY #30 tab 06/26/18 [Rx] Docusate [Colace] 100 mg PO DAILY #30 capsule 06/26/18 [Rx] HYDROcodone/APAP 7.5-325MG [[place] 7.5] 1 - 2 each PO Q6HR PRN #56 tab 06/26/18 [Rx] traMADol HCl [Ultram] 50 mg PO Q6H PRN #28 tab 06/26/18 [Rx] Follow up Appointment(s)/Referral(s): Saskia Contreras MD [Primary Care Provider] - 1-2 days Bernardo Ramirez PAC [PHYSICIAN PLISSE MACHINE OPERATOR HELPER] - 2 Weeks Patient Instructions/Handouts: ORIF of an Ankle Fracture (DC) Activity/Diet/Wound Care/Special Instructions: regular diet Orthopedic discharge instructions: 1. Nonweightbearing right lower extremity 2. Do not remove splint, keep covered and dry while showering 3. Ice and elevate 4. Pain medication as needed 5. Aspirin 325 mg daily DVT prophylaxis 6. Follow-up [facility] in 2 weeks Discharge Disposition: HOME SELF-CARE
== END 2018-06-27 11:32 | disposition home or self-care (01) | DRG 494 ==
LOC: EC 00:28 → 4SSUR 03:19
PROVIDERS: ADMIT Orthopaedic Surgery; ATTEND Orthopaedic Surgery
PROC: 0QSG04Z Reposition Right Tibia with Internal Fixation Device, Open Approach (ICD-10-PCS; principal; 2018-06-24 14:30)
DX: S82.851A Displaced trimalleolar fracture of right lower leg, initial encounter for closed fracture (principal); M79.7 Fibromyalgia; M19.90 Unspecified osteoarthritis, unspecified site; F41.9 Anxiety disorder, unspecified; F32.9 Major depressive disorder, single episode, unspecified; E66.9 Obesity, unspecified; M25.551 Pain in right hip; K59.00 Constipation, unspecified; W01.0XXA Fall on same level from slipping, tripping and stumbling without subsequent striking against object, initial encounter; Z68.34 Body mass index [BMI] 34.0-34.9, adult; Z79.899 Other long term (current) drug therapy; Z90.710 Acquired absence of both cervix and uterus; Z90.49 Acquired absence of other specified parts of digestive tract; Z87.891 Personal history of nicotine dependence; Z80.1 Family history of malignant neoplasm of trachea, bronchus and lung
CPT/HCPCS: 27818; 36415; 72170; 80053; 85025; 85610; 85730; 93005; 96374; 96375; 99152; 99153; 99285

== ENCOUNTER → 2019-04-20 | Outpatient (CLI) | payer BC ==
--- NOTE | 2019-04-21 09:42 | MM ---
Reason for exam: screening (asymptomatic). Last mammogram was performed 1 year and 4 months ago. History: Patient is postmenopausal and had first child at age 34. Retro-pectoral saline implants in both breasts, 2005. Physical Findings: A clinical breast exam by your physician is recommended on an annual basis and results should be correlated with mammographic findings. MG Screening Mammo Implant/CAD Bilateral CC, MLO, and ID view(s) were taken. Prior study comparison: December 09, 2017, bilateral MG 3d screen mammo imp/cad. April 08, 2012, CAD bilateral diagnostic mammogram. The breast tissue is heterogeneously dense. This may lower the sensitivity of mammography. Stable saline implants. No significant changes when compared with prior studies. ASSESSMENT: Benign, BI-RAD 2 RECOMMENDATION: Routine screening mammogram of both breasts in 1 year.
== END | disposition home or self-care (01) ==
LOC: RADMAMWWP 10:58
PROVIDERS: ATTEND Family Medicine
DX: Z12.31 Encounter for screening mammogram for malignant neoplasm of breast (principal)
CPT/HCPCS: 77067

== ENCOUNTER → 2019-08-31 | Outpatient (CLI) | payer BC ==
[2019-08-31 19:20] LABS: African American GFR (CKD) 98.2 (60.0-200.0); C Reactive Protein <0.4 mg/dL (0.0-0.8); Carbon Dioxide 28.6 mmol/L (21.6-31.8); Chloride 106 mmol/L (96-109); Non-African American GFR(CKD) 84.8 (60.0-200.0); Potassium 4.2 mmol/L (3.5-5.5); Rheumatoid Factor, Qnt 6 IU/mL (0-15); Sodium 143 mmol/L (135-145)
== END | disposition home or self-care (01) ==
LOC: LABWHC1 10:30
PROVIDERS: ATTEND Internal Medicine
DX: M25.50 Pain in unspecified joint (principal); G25.81 Restless legs syndrome
CPT/HCPCS: 36415; 80051; 82565; 84439; 84443; 84520; 85652; 86038; 86140; 86431

== ENCOUNTER 2020-06-29 14:19 | Emergency (ER) | payer BC ==
[2020-06-29 14:25] VITALS: BP 130/85; PULSE 73; RESP 18; TEMP 98.1
[2020-06-29] MEDS ORDERED: ACETAMINOPHEN TAB 500 MG TAB PO STA (14:46)
--- NOTE | 2020-06-29 14:50 | ED ---
Fall HPI - General Chief Complaint: Fall Stated Complaint: Fall/Head Injury Time Seen by Provider: 06/29/20 14:43 Source: patient, RN notes reviewed Mode of arrival: wheelchair - History of Present Illness Initial Comments: Patient is a 55-year-old female that presents to emergency department status post fall from a pogo stick with head injury. She notes that she was postictal fell onto her right side and hit the right side of her head. She did did state that she lost consciousness for a brief moment. She notes that she is currently nauseous feels very tired. She denied any other pain in any other extremities or body parts. She was well-appearing and well-hydrated while sitting up in bed during exam and interview. She did have a cervical collar on while sitting in bed. She states that her pain was a 7 out of 10. She denied any chest pain shortness of breath vomiting diarrhea constipation fever fatigue chills decreased sensation numbness tingling down any of the extremities, blood thinner use. - Related Data Home Medications Medication Instructions Recorded Confirmed Escitalopram [Lexapro] 10 mg PO DAILY 12/08/17 06/23/18 Fluticasone Nasal [place] [Flonase 1 spray EA NOSTRIL BID 12/08/17 06/23/18 Nasal [place]] Loratadine [Claritin] 10 mg PO DAILY 12/08/17 06/23/18 Pregabalin [Lyrica] 100 mg PO HS 12/08/17 06/23/18 lamoTRIgine [LaMICtal] 100 mg PO QAM 12/08/17 06/23/18 traZODone HCL 150 mg PO HS 12/08/17 06/23/18 Escitalopram [Lexapro] 20 mg PO DAILY 06/23/18 06/23/18 lamoTRIgine [LaMICtal] 200 mg PO HS 06/23/18 06/23/18 Previous Rx's Medication Instructions Recorded Aspirin 325 mg PO DAILY #30 tab 06/26/18 Docusate [Colace] 100 mg PO DAILY #30 capsule 06/26/18 HYDROcodone/APAP 7.5-325MG [[place] 1 - 2 each PO Q6HR PRN #56 tab 06/26/18 7.5] traMADol HCl [Ultram] 50 mg PO Q6H PRN #28 tab 04/28/19 Allergies Allergy/AdvReac Type Severity Reaction Status Date / Time No Known Allergies Allergy Verified 06/29/20 14:25 Review of Systems ROS Statement: Those systems with pertinent positive or pertinent negative responses have been documented in the HPI. ROS Other: All systems not noted in ROS Statement are negative. Past Medical History Past Medical History: Fibromyalgia, Osteoarthritis (OA) Additional Past Medical History / Comment(s): environmental allergies, arthritis ghazal hands History of Any Multi-Drug Resistant Organisms: None Reported Past Surgical History: Bariatric Surgery, Breast Surgery, Cholecystectomy, Hysterectomy, Orthopedic Surgery Additional Past Surgical History / Comment(s): breast augmentation, left ankle surgery,[id number] Past Anesthesia/Blood Transfusion Reactions: No Reported Reaction Past Psychological History: Anxiety, Depression Smoking Status: Never smoker Past Alcohol Use History: Occasional Past Drug Use History: None Reported - Past Family History Mother Family Medical History: Cancer Additional Family Medical History / Comment(s): lung cancer Father Family Medical History: Cancer Additional Family Medical History / Comment(s): lung cancer General Exam Limitations: no limitations General appearance: alert, in no apparent distress, obese Head exam: Present: atraumatic, normocephalic, normal inspection Eye exam: Present: normal appearance, PERRL, EOMI. Absent: scleral icterus, c onjunctival injection, periorbital swelling Neck exam: Present: normal inspection, other (C-collar in place). Absent: tenderness, meningismus, lymphadenopathy Respiratory exam: Present: normal lung sounds bilaterally. Absent: respiratory distress, wheezes, rales, rhonchi, stridor Cardiovascular Exam: Present: regular rate, normal rhythm, normal heart sounds. Absent: systolic murmur, diastolic murmur, rubs, gallop, clicks Extremities exam: Present: normal inspection, full ROM, normal capillary refill. Absent: tenderness, pedal edema, joint swelling, calf tenderness Neurological exam: Present: alert, oriented X3, CN II-XII intact Psychiatric exam: Present: normal affect, normal mood Skin exam: Present: warm, dry, intact, normal color. Absent: rash Course Vital Signs 06/29/20 14:21 Temperature 98.1 F Pulse Rate 73 Respiratory 18 Rate Blood Pressure 130/85 O2 Sat by Pulse 98 Oximetry Medical Decision Making - Medical Decision Making 55-year-old female status post fall off the pogo stick with head injury and positive loss of consciousness. CT of the brain and C-spine, [address]. [address] negative for any acute fracture of C-spine and internal abnormalities the brain. Case discussed with Dr. Chavarria, patient can discharge home with follow-up to primary care. - Radiology Data Radiology results: report reviewed, image reviewed CT of the brain and C-spine: Negative computed tomography scan of brain, moderately severe spondylitic changes in the lower cervical spine. No fracture Disposition Clinical Impression: Fall, Concussion Disposition: HOME SELF-CARE Condition: Stable Instructions (If sedation given, give patient instructions): Concussion (ED) Additional Instructions: Please return to the Emergency Department if symptoms worsen or any other concerns. Try to avoid pogo ask. Follow-up with primary care in 3-5 days. Try not to sleep for the next several hours. If symptoms persist please return. Is patient prescribed a controlled substance at d/c from ED?: No Referrals: Reginaldo Spencer [Primary Care Provider] - 1-2 days Time of Disposition: 15:39
--- NOTE | 2020-06-29 15:26 | CT ---
EXAMINATION TYPE: CT brain gamaliel wo con DATE OF EXAM: 06/29/2020 COMPARISON: None HISTORY: fall, head injury CT DLP: 1781.9 mGycm Automated exposure control for dose reduction was used. Ventricles and sulci appear normal. There is no mass effect nor midline shift. There is no sign of in tracranial hemorrhage. Calvarium is intact. There is mild straightening of the cervical spine. There is hypertrophic spurring of the endplates fr om C5 to C7. Posterior elements are intact. There is hypertrophic mild multilevel facet arthropathy. Skull base is intact. There is normal aeration of the mastoid sinuses. IMPRESSION: Negative CT scan of the brain. Moderately severe spondylotic changes in the lower cervical spine. No fracture.
== END 2020-06-29 16:03 | disposition home or self-care (01) ==
LOC: EC 14:19
DX: S06.0X9A Concussion with loss of consciousness of unspecified duration, initial encounter (principal); M79.7 Fibromyalgia; M19.90 Unspecified osteoarthritis, unspecified site; F32.9 Major depressive disorder, single episode, unspecified; Z90.49 Acquired absence of other specified parts of digestive tract; Z90.710 Acquired absence of both cervix and uterus; W19.XXXA Unspecified fall, initial encounter
CPT/HCPCS: 70450; 72125; 99283

== ENCOUNTER → 2020-10-08 | Outpatient (CLI) | payer BC ==
--- NOTE | 2020-10-08 18:46 | CT ---
EXAMINATION TYPE: CT wrist RT wo con DATE OF EXAM: 10/08/2020 COMPARISON: None HISTORY: Fractured wrist pain CT DLP: 115.4 mGycm Automated exposure control for dose reduction was used. Contrast: None Technique: Axial images 2 mm thick sections. Reconstructed images in the coronal and sagittal plane. FINDINGS: Plate and screws from prior open reduction internal fixation distal radial fracture are evident. No a cute fractures are identified. One of the screws extends into the joint space adjacent to the lunate, series 7 image 34. Osteoarthritic type degenerative changes at the first carpometacarpal junction. Carpal bones otherwis e appear intact. Scapholunate space appears preserved. Soft tissues are unremarkable. IMPRESSION: 1. NO ACUTE OSSEOUS ABNORMALITY EVIDENT. 2. PRIOR OPEN REDUCTION INTERNAL FIXATION. ONE SCREW MAY EXTEND TOWARDS THE SCAPHOLUNATE SPACE TOWARD S THE ARTICULAR SURFACE OF THE RADIUS.
== END | disposition home or self-care (01) ==
LOC: RADCTMAIN 12:55
PROVIDERS: ATTEND Orthopaedic Surgery Hand Surgery
DX: M19.09 Primary osteoarthritis, other specified site (principal); M25.531 Pain in right wrist

== ENCOUNTER → 2021-07-18 | Outpatient (CLI) | payer BC ==
--- NOTE | 2021-07-18 10:48 | XR ---
EXAMINATION TYPE: XR ankle complete LT DATE OF EXAM: 07/18/2021 COMPARISON: NONE HISTORY: Pain FINDINGS: Three views of the ankle demonstrate the ankle mortise to be intact and symmetric. The joint spaces are preserved. The osseous structures are intact. Plantar calcaneal spur noted. IMPRESSION: 1. No definite acute fracture or dislocation, if symptoms persist follow-up study in 7 to 10 days wou ld be suggested.
--- NOTE | 2021-07-18 10:50 | XR ---
EXAMINATION TYPE: XR foot complete LT DATE OF EXAM: 07/18/2021 COMPARISON: NONE HISTORY: Pain TECHNIQUE: Three views are submitted. FINDINGS: The osseous structures are intact. There is no acute fracture or dislocation. Hypertrophic change of the first MTP. Calcaneal spur noted. Hammertoe deformity seen. Mild narrowing of all DIP joints. N o erosive changes. IMPRESSION: 1. No acute fracture or dislocation. If symptoms persist, follow-up exam in 7 to 10 days could be ob tained. 2. Calcaneal spur. 3 hypertrophic arthropathy first MTP joint.
--- NOTE | 2021-07-18 10:52 | XR ---
EXAMINATION TYPE: XR knee complete bilateral DATE OF EXAM: 07/18/2021 COMPARISON: NONE HISTORY: Pain TECHNIQUE: Three views are submitted. FINDINGS: Narrowing of the medial compartment of the knee joint bilaterally. Tiny hypertrophic spurs. Mild diff use osteopenia. Narrowing of patellofemoral joint noted.. Osseous structures are intact. No acute f racture seen. IMPRESSION: 1. Diffuse osteopenia with osteoarthritis.
== END | disposition home or self-care (01) ==
LOC: RADXRMAIN 10:14
PROVIDERS: ATTEND Family Medicine
DX: M25.571 Pain in right ankle and joints of right foot (principal); M25.572 Pain in left ankle and joints of left foot; M25.561 Pain in right knee; M25.562 Pain in left knee; M79.7 Fibromyalgia
CPT/HCPCS: 82607; 82746